=== PATIENT | female | born 1935 | race Caucasian/White ===

== ENCOUNTER → 2017-07-23 | Outpatient (CLI) | payer MEDICARE, BC | END | disposition home or self-care (01) | LOC: WOU 12:40 | PROVIDERS: ATTEND Surgery | DX: L03.011 Cellulitis of right finger (principal); B35.1 Tinea unguium | CPT/HCPCS: 73140; G0463 ==

== ENCOUNTER 2017-07-30 13:10 | Outpatient (CLI) | payer MEDICARE, BC | END 2017-07-30 23:59 | disposition home or self-care (01) | LOC: WOU 13:10 | PROVIDERS: ATTEND Surgery | DX: L03.011 Cellulitis of right finger (principal); B35.1 Tinea unguium; C91.10 Chronic lymphocytic leukemia of B-cell type not having achieved remission; M79.644 Pain in right finger(s) | CPT/HCPCS: G0463 ==

== ENCOUNTER 2019-06-17 05:16 | Inpatient (IN) | payer MEDICARE, BC ==
[2019-06-17] VITALS (15 sets, daily range): BP systolic 106–139; BP diastolic 58–90
[~2019-06-17] VITALS: Ht 154.9 cm; Wt 83.5 kg
[2019-06-17] MEDS ORDERED: oxyCODONE HCL SR 10MG TAB.SR.12H PO ONE (05:45)
[2019-06-17] MEDS ORDERED: CELECOXIB 100 MG CAPSULE ONE (05:46)
[2019-06-17] MEDS ORDERED: ACETAMINOPHEN 325 MG TABLET ONE (05:47)
[2019-06-17] MEDS ORDERED: BACITRACIN 50000 UNITS/VIAL ONE (06:17)
[2019-06-17] MEDS ORDERED: ANESTHESIA TRAY IN PYXIS 1 EA TRAY MC ONE (06:17)
[2019-06-17] MEDS ORDERED: MIDAZOLAM HCL 2 MG/2ML VIAL ONE (06:50)
[2019-06-17] MEDS ORDERED: MORPHINE SULFATE/PF 10 MG/10ML (1MG/ML) AMPUL ONE (06:50)
[2019-06-17] MEDS ORDERED: SCOPOLAMINE HBR 1 EA PATCH.TD72 TD ONE (06:50)
[2019-06-17] MEDS ORDERED: FLUMAZENIL 0.5 MG VIAL ONE (06:51)
[2019-06-17] MEDS ORDERED: TRANEXAMIC ACID 3,000 MG in SODIUM CHLORIDE IRRIG SOLUTION 70 ML IR ONE (08:00)
--- NOTE | 2019-06-17 09:00 | NUR ---
Tele/RN Patient transferred from OR for post left hip orthoplasty accompanied by OR nurse by [email or web address]. Pt AOx4, able to response all stimuli. Skin is warm to touch, kept placed on abduction pillow, no further c/o discomfort on operative site, intact surgery and IV site. Given orientation call light, medications, meal time, and TV. Call light with in reach, will continue to monitor.
[2019-06-17] MEDS ORDERED: PANTOPRAZOLE 40 MG TABLET.DR PO ONE (10:54)
[2019-06-17] MEDS ORDERED: CLONIDINE HCL 0.1 MG TABLET PO PRN (11:00)
[2019-06-17] MEDS ORDERED: oxyCODONE IR immediate release 5 MG PO PRN (11:00)
[2019-06-17] MEDS ORDERED: MENTHOL/CETYLPYRD (CEPACOL) 1 LOZ LOZENGE PO PRN (11:00)
[2019-06-17] MEDS ORDERED: DULCOLAX 10 MG/SUPP.RECT RC PRN (11:00)
[2019-06-17] MEDS ORDERED: COLACE 250 MG CAPSULE PO PRN (11:00)
[2019-06-17] MEDS ORDERED: NALOXONE HCL 0.4 MG/ML AMPUL IV PRN (11:00)
[2019-06-17] MEDS ORDERED: MAG HYDROX/AL HYDROX/SIMETH 30 ML UDC PO PRN (11:00)
[2019-06-17] MEDS ORDERED: SENOKOT 8.6 MG TABLET PO PRN (11:00)
[2019-06-17] MEDS ORDERED: HYDROCODONE/APAP 5/325MG 1 EACH TABLET PO PRN (11:00)
[2019-06-17] MEDS ORDERED: AMBIEN 5 MG TABLET PO PRN (11:00)
[2019-06-17] MEDS ORDERED: HYDROMORPHONE 1 MG/1 ML DISP.SYRIN IM/IV/SC PRN (11:00)
[2019-06-17] MEDS ORDERED: diphenhydrAMINE HCL 25 MG CAPSULE PO PRN (11:00)
[2019-06-17] MEDS ORDERED: ONDANSETRON HCL/PF 4 MG/2 ML VIAL IV PRN ×2 (11:00)
[2019-06-17] MEDS ORDERED: HYDROMORPHONE 1 MG/1 ML DISP.SYRIN IV PRN (11:00)
[2019-06-17] MEDS ORDERED: DOCUSATE SODIUM 250 MG CAPSULE PO ONE (11:17)
[2019-06-17] MEDS: SERTRALINE HCL 50 MG TABLET PO SCH (11:21)
[2019-06-17] MEDS ORDERED: OMEP40CA13 PO (11:23)
[2019-06-17] MEDS ORDERED: FLUT1BLS PO (11:23)
[2019-06-17] MEDS ORDERED: LEVO112T7 PO (11:23)
[2019-06-17] MEDS ORDERED: oxyCODONE IR immediate release 5 MG PO ONE (11:26)
[2019-06-17] MEDS: IV LR 1000 ML 1,000 ML IV PRN (12:17)
[2019-06-17] MEDS: DOCUSATE SODIUM 100 MG CAPSULE PO SCH (17:04)
[2019-06-17] MEDS: ANCEF 1 G in IV D5W 50 ML IV SCH ×2 (17:04→23:36)
--- NOTE | 2019-06-17 19:00 | NUR ---
Tele/RN Closing Note Pt. in comfortably, no c/o pain or any discomfort R/T left hip post operative. Skin is warm to touch, respiratory even unlabored. Will endorse to manager reading.
--- NOTE | 2019-06-17 19:44 | NUR ---
RECEIVE PT IN BED A/O X 4 STABLE AND NOT IN DISTRESS S/P ORIF L HIP NO C/O PAIN AT THIS TIME SR ON CARDIAC MONITORING. SAFETY MEASURES AT ALL TIMES WILL CONTINUE TO MONITOR
[2019-06-17] MEDS: FAMOTIDINE (20 MG) 20 MG TABLET PO SCH (21:32)
[2019-06-18] VITALS: BP 111/66
[2019-06-18] MEDS: IV LR 1000 ML 1,000 ML IV PRN (02:49)
[2019-06-18] MEDS: oxyCODONE IR immediate release 5 MG PO PRN ×4 (03:49→20:10)
[2019-06-18 04:00] VITALS: BP 129/73
[2019-06-18] MEDS: TYLENOL 650 MG TABLET PO PRN ×3 (05:01→20:07)
--- NOTE | 2019-06-18 06:16 | NUR ---
DIRECTOR OF TRAINING PT ASLEEP AND EASILY AWAKEN,NO S/S OF DISTRESS AT THIS TIME. NEEDS ATTENDED AND ANTICIPATED, KEPT CLEAN DRY AND COMFORTABLE. LEG HIP ABDUCTOR AT ALL TIMES. S/P LEFT HIP TOTAL ARTHROPLASTY DRESSING INTACT, CLEAN AND NO S/S OF BLEEDING NOTED. CONTINUOS O2 SAT AT BEDSIDE 02 SATURATION AT 93%. ON CARDIAC MONITORING SINUS RHYTHM 89 HR IN TELE MONITOR. MONITORED FOR PAIN NO C/O PAIN AT THIS TIME. SAFETY MEASURES AT ALL TIMES. WILL ENDORSE NEXT SHIFT POC.
--- NOTE | 2019-06-18 07:00 | NUR ---
MS/RN Opening Note Received Patient AO x 4, D/C telemetry. Complain of s/p ORIF on left hip, given oxycodone 5 mg, no noticed bleeding or complication also. Respiratory even and unlabored, Pt take off N/C oxygen, O2sat 93 % in room air. Daughter at bed side, call light within reach, will continue to monitor.
[2019-06-18 08:00] VITALS: BP 114/73
[2019-06-18] MEDS: PANTOPRAZOLE 40 MG TABLET.DR PO SCH (08:06)
[2019-06-18] MEDS: FAMOTIDINE (20 MG) 20 MG TABLET PO SCH ×2 (08:06→20:10)
[2019-06-18] MEDS: DOCUSATE SODIUM 100 MG CAPSULE PO SCH ×2 (08:06→16:46)
[2019-06-18] MEDS: SERTRALINE HCL 50 MG TABLET PO SCH (08:09)
[2019-06-18] MEDS: RIVAROXABAN 10 MG TABLET PO SCH (08:09)
[2019-06-18 08:45] LABS: HEMOGLOBIN 10.2 g/dL (11.5-14.8)
--- NOTE | 2019-06-18 09:15 | NUR ---
Patient c/o pain on left hip s/p ORIF done on yesterday, and requesting increase dosage from 5mg to 10 mg of oxycodone same as dosage patient takes at home. Called and left message to Dr. Ferrera regarding above.
--- NOTE | 2019-06-18 09:56 | NUR ---
New order received/Oxycodone 10mg x [address] Ferrera.
[2019-06-18] MEDS ORDERED: oxyCODONE IR immediate release 5 MG PO ONE (10:00)
[2019-06-18] MEDS ORDERED: SENN-168 PO (14:44)
[2019-06-18] MEDS ORDERED: RIVA10TA PO (14:44)
[2019-06-18] MEDS ORDERED: DOCU-141 PO (14:44)
[2019-06-18 16:00] VITALS: BP 138/67
--- NOTE | 2019-06-18 16:00 | NUR ---
Called TUNNEL HEADING SUPERVISOR/George Eisenberg regarding patient wants to discharge to home tomorrow instead of today due to having nauseate, dizziness after PT evaluation. TUNNEL HEADING SUPERVISOR/[place]gin stated ok to d/c tomorrow. Will continue to monitor patient condition.
--- NOTE | 2019-06-18 17:00 | NUR ---
Patient noticed fever 102.3, given Tylenol and rechecked temperature was 99.0. Informed POCKETED SPRING MACHINE OPERATOR/Eisenberg received new order cbc, bmp now, and cbc, bmp tomorrow am, UA C/S. Noted and carry out.
--- NOTE | 2019-06-18 18:50 | NUR ---
MS/RN Closing note Pt is in bed comfortably, no pain or distress observed at this time. Skin is warm to touch, latest temperature 99.8, checked bladder scanner and shows 74ml remains, respiratory even and unlabored. Call light within reach, endorse care to PM nurse.
[2019-06-18 19:07] LABS: CREATININE 0.7 mg/dL (0.6-1.3)
--- NOTE | 2019-06-18 19:30 | NUR ---
RN NOTES RECEIVED PT. AWAKE ON BED, DAUGHTER AT BEDSIDE, NOT IN DISTRESS , DRESSING ON THE LEFT HIP DRY AND INTACT, CALL LIGHT WITHIN REACH, [id number], CONTINUE TO MONITOR
[2019-06-18 20:00] VITALS: BP 131/69
--- NOTE | 2019-06-18 20:10 | NUR ---
RN NOTES COMPLAINED OF LEFT HIP PAIN- OXY IR 10MG PO GIVEN ORDERED, V/S STABLE.... PT. HAS TEMP. OF 100.6- TYLENOL 650MG PO GIVEN ORDERED.. COLD COMPRESS RENDERED..
[2019-06-18 20:39] LABS: BASOPHILS % (AUTO) 0.8 % (0.0-2.0); EOSINOPHILS % (AUTO) 0.3 % (0.0-6.0); HEMATOCRIT 30 % (33-45); HEMOGLOBIN 10.1 g/dL (11.5-14.8); LYMPHOCYTES # (AUTO) 0.4 /CMM (0.8-4.8); LYMPHOCYTES % (AUTO) 7.2 % (20.0-44.0); MEAN CORPUSCULAR HGB CONC 34 g/dl (31.0-36.0); MEAN CORPUSCULAR VOLUME 96 fL (82-100); MONOCYTES % (AUTO) 16.6 % (2.0-12.0); NEUTROPHILS # (AUTO) 4.6 /CMM (1.8-8.9); NEUTROPHILS % (AUTO) 75.1 % (43.0-81.0); PLATELET COUNT (AUTO) 150 /CMM (150-450); RED BLOOD CELL COUNT(AUTO) 3.12 MIL/uL (4.0-5.2); WHITE BLOOD COUNT (AUTO) 6.1 K/uL (4.3-11.0)
[2019-06-18 20:59] LABS: LYMPHOCYTES % (MANUAL) 10 % (16-48); NEUTROPHILS % (MANUAL) 75 (42-76)
[2019-06-18 21:00] LABS: MONOCYTES % (MANUAL) 15 % (0-11.0)
--- NOTE | 2019-06-18 21:00 | NUR ---
RN NOTES PT. TEMP. WENT DOWN TO 99F
[2019-06-18 21:17] LABS: APPEARANCE,URINE SL CLOUDY (CLEAR); BILIRUBIN,URINE NEGATIVE (NEGATIVE); BLOOD, URINE LARGE Ery/uL (NEGATIVE); COLOR,URINE YELLOW (YELLOW); KETONES,URINE NEGATIVE (NEGATIVE); LEUKOCYTE ESTERASE ,URINE LARGE (NEGATIVE); NITRITE, URINE NEGATIVE (NEGATIVE); PH,URINE 5.5 (5.0-8.0); PROTEIN,URINE TRACE mg/dl (NEGATIVE); UGLUCOSE NEGATIVE (NEGATIVE); UROBILINOGEN,URINE 0.2 EU/dL (0.2)
[2019-06-18 21:24] LABS: BACTERIA,URINE 2+ /HPF (None Seen); SQUAMOUS EPITHELIAL CELL,UR Few /HPF (None Seen)
[2019-06-18] MEDS ORDERED: LEVOTHYROXINE SODIUM 112 MCG TABLET PO SCH (22:00)
[2019-06-19] MEDS: oxyCODONE IR immediate release 5 MG PO PRN ×6 (01:03→19:55)
--- NOTE | 2019-06-19 01:03 | NUR ---
RN NOTES COMPLAINED OF LEFT HIP PAIN- OXY IR GIVEN ORDERED, V/S STABLE
[2019-06-19] MEDS: TYLENOL 650 MG TABLET PO PRN ×3 (01:06→20:10)
--- NOTE | 2019-06-19 01:15 | NUR ---
RN NOTES PT. HAS TEMP OF 100.2- TYLENOL 650MG PO GIVEN... COLD COMPRESS RENDERED
--- NOTE | 2019-06-19 02:00 | NUR ---
RN NOTES TEMP WENT DOWN TO 98.8
--- NOTE | 2019-06-19 04:26 | NUR ---
RN NOTES COMPLAINED OF LEFT HIP- OXY IR 10MG PO GIVEN ORDERED, V/S STABLE
--- NOTE | 2019-06-19 06:34 | NUR ---
RN NOTES SLEEPING BUT AROUSABLE, MORNING CARE RENDERED, NO SOB, CALL LIGHT WITHIN REACH, SIDERAILSUPX2, PT. NEEDS ATTENDED
[2019-06-19 07:28] LABS: BASOPHILS % (AUTO) 0.4 % (0.0-2.0); EOSINOPHILS % (AUTO) 1.4 % (0.0-6.0); HEMATOCRIT 30 % (33-45); HEMOGLOBIN 10.2 g/dL (11.5-14.8); LYMPHOCYTES # (AUTO) 0.4 /CMM (0.8-4.8); LYMPHOCYTES % (AUTO) 5.7 % (20.0-44.0); MEAN CORPUSCULAR HGB CONC 34 g/dl (31.0-36.0); MEAN CORPUSCULAR VOLUME 95 fL (82-100); MONOCYTES # (AUTO) 1.4 /CMM (0.1-1.30); MONOCYTES % (AUTO) 19.8 % (2.0-12.0); NEUTROPHILS % (AUTO) 72.7 % (43.0-81.0); PLATELET COUNT (AUTO) 150 /CMM (150-450); RED BLOOD CELL COUNT(AUTO) 3.16 MIL/uL (4.0-5.2); WHITE BLOOD COUNT (AUTO) 6.9 K/uL (4.3-11.0)
--- NOTE | 2019-06-19 07:30 | NUR ---
MS RN OPENING NOTES RECEIVED PT AWAKE IN BED IN NO ACUTE SIGNS OF DISTRESS. A/O X4. ABLE TO MAKE NEEDS KNOWN, DENIES PAIN OR ANY DISCOMFORTS AT THIS TIME. DRESSING ON LEFT HIP C/D/I. ON ROOM AIR, BREATHING EVEN AND UNLABORED. IV ACCESS ON RFA 20 GAUGE IV SALINE LOCK INTACT, PATENT AND FLUSHES WELL. BED LOCKED AND IN LOWEST POSITION, SIDE RAILS UP X2. CALL LIGHT WITHIN REACH, WILL CONTINUE TO MONITOR.
[2019-06-19 07:49] LABS: CALCIUM, SERUM 8.8 mg/dL (8.5-10.1); CREATININE 0.7 mg/dL (0.6-1.3)
[2019-06-19 08:00] VITALS: BP 122/68
[2019-06-19] MEDS: PANTOPRAZOLE 40 MG TABLET.DR PO SCH (08:11)
[2019-06-19] MEDS: DOCUSATE SODIUM 100 MG CAPSULE PO SCH ×2 (08:11→16:18)
[2019-06-19] MEDS: FAMOTIDINE (20 MG) 20 MG TABLET PO SCH ×2 (08:12→22:10)
[2019-06-19] MEDS: SERTRALINE HCL 50 MG TABLET PO SCH (08:13)
[2019-06-19 08:41] LABS: BAND % (MANUAL) 1 % (0.0-5.0); LYMPHOCYTES % (MANUAL) 3 % (16-48); MONOCYTES % (MANUAL) 14 % (0-11.0); MYELOCYTES % 1 % (0-0); NEUTROPHILS % (MANUAL) 81 (42-76)
--- NOTE | 2019-06-19 09:31 | NUR ---
RN NOTES PT NOTED WITH URINE WBC 10-20, BLANKING MACHINE OPERATOR ANDREWS ON UNIT MADE AWARE.
[2019-06-19] MEDS: CEFTRIAXONE 1 G in IV D5W 50 ML IV SCH (11:47)
--- NOTE | 2019-06-19 12:36 | NUR ---
RN NOTES PT COMPLAINED OF LEFT HIP PAIN 6/10 SCALE, OXY 1R 10MG PO GIVEN ORDERED. WILL CONTINUE TO MONITOR AND REASSESS.
--- NOTE | 2019-06-19 15:53 | NUR ---
RN NOTES PT NOTED WITH ELEVATED TEMP OF 100.5F, PRN TYLENOL 650 MG PO GIVEN @ 1551 AND COOLING MEASURES DONE. WILL CONTINUE TO MONITOR.
[2019-06-19 16:00] VITALS: BP 131/81
[2019-06-19] MEDS: RIVAROXABAN 10 MG TABLET PO SCH (16:19)
--- NOTE | 2019-06-19 18:24 | NUR ---
RN NOTES RE-CHECKED TEMP JUST NOW AND WAS 98.8F. WILL CONTINUE TO MONITOR.
--- NOTE | 2019-06-19 18:31 | NUR ---
MS RN CLOSING NOTES PT IN BED AWAKE AND WATCHING TV AT THIS TIME. DAUGHTER AT BEDSIDE. A/O X4. ABLE TO MAKE NEEDS KNOWN. DRESSING ON LEFT HIP C/D/I. ON ROOM AIR, TOLERATING WELL WITH NO SOB NOTED THROUGHOUT THE DAY. IV ACCESS ON RFA G #20 IV SALINE LOCK INTACT, PATENT AND FLUSHES WELL, NO S/S OF INFILTRATIONS NOTED AT SITE. ALL NEEDS AND CARE ATTENDED WELL. BED LOCKED AND IN LOWEST POSITION WITH SIDE RAILS UP X2. CALL LIGHT WITHIN REACH. WILL ENDORSE TO BOAT CARPENTER MECHANIC NURSE FOR MAYKEL.
--- NOTE | 2019-06-19 19:40 | NUR ---
MSRN FULLY AWAKE, DAUGHTER AT BEDSIDE. VERBALIZES LEFT HIP PAIN, PATIENT ON Q 3HRS NEEDED OXY IR 10 MG PO. LOW GRADE TEMP 99 DEGREES. ENCOURAGED USE OF INCENTIVE SPIROMETRY, ABLE TO REACH 2500 LEVEL. RE EDUCATE TO EXHALE SLOWLY TO PREVENT DIZZINESS. ALL NEEDS ATTENDED TO CONTINUE.
--- NOTE | 2019-06-19 19:55 | NUR ---
MSRN ADMINISTERED OXY IR 10 MG PO ORDERED. FOR LEFT HIP PAIN. BEDREST EMPHASIZED .
[2019-06-19 20:00] VITALS: BP 144/88
--- NOTE | 2019-06-19 20:10 | NUR ---
MSRN RECHECKED TEMP WAS 99.9. TYLENOL 650 MG PO GIVEN REQUESTED. ASSISTED BY DAUGHTER TO BSC, VOIDED FREELY. SAFETY PRECAUTIONS EMPHASIZED. WELL UNDERSTOOD.
--- NOTE | 2019-06-19 22:45 | NUR ---
MSRN SLEEPING, APPEARS COMFORTABLE. CONTINUED
--- NOTE | 2019-06-19 23:30 | NUR ---
MSRN SLEEPING STILL. CLOSELY WATCHED.
[2019-06-20] MEDS: oxyCODONE IR immediate release 5 MG PO PRN ×4 (00:34→12:18)
--- NOTE | 2019-06-20 06:09 | NUR ---
IRENE WAS MEDICATED WITH OXY IR 10 PO. STATED, ABLE TO SLEPT WELL LAST NIGHT, PAIN UNDER CONTROL. HOPING WILL PARTICIPATE MORE ON HER PHYSICAL THERAPY
[2019-06-20] MEDS: LEVOTHYROXINE SODIUM 112 MCG TABLET PO SCH ×2 (06:58→07:30)
--- NOTE | 2019-06-20 07:18 | NUR ---
MS RN OPENING NOTES RECEIVED PT IN BED AWAKE, A/O X4. ABLE TO MAKE NEEDS KNOWN, DENIES PAIN OR ANY DISCOMFORTS AT THIS TIME. DRESSING ON LEFT HIP C/D/I. ON ROOM AIR, BREATHING EVEN AND UNLABORED. IV SL ON RFA G# 20 INTACT, PATENT AND FLUSHES WELL. BED LOCKED AND IN LOWEST POSITION WITH SIDE RAILS UP X2. CALL LIGHT WITHIN REACH. WILL CONTINUE TO MONITOR.
--- NOTE | 2019-06-20 07:35 | NUR ---
RN NOTES SYNTHROID 112 MCG TAB SCHEDULED FOR 729 NOT GIVEN BECAUSE IT WAS GIVEN ALREADY EARLIER BY TELECOMMUNICATIONS SALES REPRESENTATIVE NURSE.
[2019-06-20 08:00] VITALS: BP 124/68
[2019-06-20] MEDS: PANTOPRAZOLE 40 MG TABLET.DR PO SCH (08:39)
[2019-06-20] MEDS: DOCUSATE SODIUM 100 MG CAPSULE PO SCH (08:39)
[2019-06-20] MEDS: FAMOTIDINE (20 MG) 20 MG TABLET PO SCH (08:39)
--- NOTE | 2019-06-20 08:43 | NUR ---
RN NOTES PT COMPLAINED OF LEFT HIP PAIN, 6/10 SCALE, OXY 1R 10MG PO GIVEN AT 0841. WILL CONTINUE TO MONITOR AND REASSESS.
[2019-06-20] MEDS: SERTRALINE HCL 50 MG TABLET PO SCH (08:53)
[2019-06-20] MEDS: CEFTRIAXONE 1 G in IV D5W 50 ML IV SCH (11:27)
--- NOTE | 2019-06-20 12:20 | NUR ---
RN NOTES PT HAD PHYSICAL THERAPY DONE AND WALKED WITH WALKER WITH SBA. PT NOW COMPLAINED OF LEFT HIP PAIN, 6/10 SCALE, OXY IR 10MG PO GIVEN AT 1218. WILL CONTINUE TO MONITOR AND REASSESS.
[2019-06-20] MEDS ORDERED: CEPH-570 PO (12:40)
--- NOTE | 2019-06-20 15:24 | NUR ---
RN DISCHARGED NOTES PT DISCHARGED HOME IN STABLE MEDICAL CONDITION. A/O X4, SAME ABLE TO MAKE NEEDS KNOWN. ALL NEEDS ATTENDED WELL. V/S TAKEN AND RECORDED. PHOTO OF LEFT HIP SURGICAL SITE TAKEN AND FILED IN CHART. ALOK INTACT WITH NO BLEEDING NOTED AT SURGICAL SITE, DRESSING CHANGED ORDERED. IV ACCESS ON LFA REMOVED WITH NO BLEEDING NOTED, DRY DRESSING APPLIED. NAME ARMBAND REMOVED. HEALTH TEACHING/DISCHARGED INSTRUCTIONS GIVEN TO PT AND DAUGHTER, BOTH VERBALIZED UNDERSTANDING. PT LEFT UNIT VIA WHEELCHAIR @ 1440 ACCOMPANIED BY LOOM STARTER TO LOBBY WITH PT'S DAUGHTER. CHARGE NURSE AWARE OF DISCHARGE.
== END 2019-06-20 14:40 | disposition home health service (06) | DRG 470 ==
LOC: DS 05:16 → MED 10:04 → TELE 10:09 → MED 06-18 08:38
PROVIDERS: ADMIT Nurse Practitioner Acute Care; ATTEND Nurse Practitioner Acute Care
PROC: 0SRB0JZ Replacement of Left Hip Joint with Synthetic Substitute, Open Approach (ICD-10-PCS; principal; 2019-06-17)
DX: M16.12 Unilateral primary osteoarthritis, left hip (principal); C91.11 Chronic lymphocytic leukemia of B-cell type in remission; N39.0 Urinary tract infection, site not specified; E03.9 Hypothyroidism, unspecified; K21.9 Gastro-esophageal reflux disease without esophagitis; Z90.710 Acquired absence of both cervix and uterus; Z90.49 Acquired absence of other specified parts of digestive tract; Z98.890 Other specified postprocedural states; Z80.9 Family history of malignant neoplasm, unspecified; Z79.899 Other long term (current) drug therapy; F32.9 Major depressive disorder, single episode, unspecified
CPT/HCPCS: 36415; 80048-TC; 81000-TC; 85025-TC; 85027-TC; 86850-TC; 86921-TC; 87081-TC; 87086-TC; 87186-TC; 88305-TC; 88311-TC; 97110-TC; 97116-TC; 97530-TC; A4217; A6209; A6402; A6403; C1776; G0378; J0690; J0696; J1100; J2250; J2274; J2704; J3490; J7050; J7060; J7120

== ENCOUNTER 2022-10-30 18:22 | Inpatient (IN) | payer MEDICARE, BC ==
[~2022-10-30] VITALS: Ht 154.9 cm; Wt 70.3 kg
[~2022-10-30 18:22] MED LIST: CEPH-570 PO; DOCU-141 PO; FLUT1BLS PO; LEVO112T7 PO; OMEP40CA21 PO; RIVA10TA PO; SENN-261 PO
[2022-10-30] MEDS ORDERED: ACETAMINOPHEN ES 500 MG TABLET PO ONE (19:00)
[2022-10-30] MEDS ORDERED: IV NS 0.9% 1,000 ML BAG IV ONE (19:00)
[2022-10-30] MEDS ORDERED: VANCOMYCIN 1 GM in IV D5W 250 ML IV ONE (19:00)
[2022-10-30] MEDS ORDERED: CEFEPIME 1 GM in IV D5W 50 ML IV ONE (19:00)
[2022-10-30] MEDS ORDERED: FLUT1BLS13 INH (19:04)
[2022-10-30] MEDS ORDERED: SERT100T12 PO (19:04)
[2022-10-30] MEDS ORDERED: CLON0.5T4 PO (19:04)
[2022-10-30] MEDS ORDERED: ACAL100C PO (19:04)
[2022-10-30] MEDS ORDERED: ROSU5TAB13 PO (19:04)
[2022-10-30] MEDS ORDERED: IGG IV (19:08)
[2022-10-30] MEDS ORDERED: VANCOMYCIN 1 GM /D5W 250 ML PB IV ONE (19:19)
[2022-10-30] MEDS ORDERED: ACETAMINOPHEN ES 500 MG TABLET ONE (19:19)
[2022-10-30 19:43] LABS: BASOPHILS % (AUTO) 0.2 % (0.0-2.0); EOSINOPHILS % (AUTO) 0.5 % (0.0-6.0); HEMATOCRIT 31 % (33-45); HEMOGLOBIN 9.9 g/dL (11.5-14.8); LYMPHOCYTES # (AUTO) 5.2 K/uL (0.8-4.8); LYMPHOCYTES % (AUTO) 40.8 % (20.0-44.0); MEAN CORPUSCULAR HGB CONC 32 g/dl (31.0-36.0); MEAN CORPUSCULAR VOLUME 91 fL (82-100); MONOCYTES # (AUTO) 1.6 K/uL (0.1-1.30); MONOCYTES % (AUTO) 12.6 % (2.0-12.0); NEUTROPHILS # (AUTO) 5.9 K/uL (1.8-8.9); NEUTROPHILS % (AUTO) 45.9 % (43.0-81.0); PLATELET COUNT (AUTO) 107 K/uL (150-450); RED BLOOD CELL COUNT(AUTO) 3.37 MIL/uL (4.0-5.2); WHITE BLOOD COUNT (AUTO) 12.9 K/uL (4.3-11.0)
--- NOTE | 2022-10-30 20:05 | NUR ---
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 RECENT SINUS Sx. C/O: FEVER AND SEVER CHILLS. PT CONNECTED TO BEDSIDE MONITOR AND PROVIDED Rx FROM DOCTOR TO TREAT ABX STARTED BLOOD AND CULTRUES DRAWN. NO TACHYCARDIA NOTED, BP WNL. FEVER NOTED 102. IN BED GRANDAUGHTER AT BEDSIDE. BED LOCKED IN LOWEST POSITION.
--- NOTE | 2022-10-30 20:09 | NUR ---
URINE COLLECTED AND SENT TO LAB.
[2022-10-30 20:16] LABS: CARBON DIOXIDE 24 mmol/L (21-32); CHLORIDE 107 mmol/L (98-107); CREATININE 0.9 mg/dL (0.6-1.3); GLUCOSE 125 mg/dL (74-106); POTASSIUM 4.3 mmol/L (3.5-5.1); SODIUM SERUM 139 mmol/L (136-145); UREA NITROGEN, BLOOD 18 mg/dL (7-18)
[2022-10-30] MEDS ORDERED: IOHEXOL-300 100 ML VIAL IV ONE (20:39)
[2022-10-30] MEDS ORDERED: IV NS 0.9% 250 ML IV ONE (20:39)
[2022-10-30] MEDS ORDERED: CT SWABBABLE VALVE TRANS SET 1 EA INFUS.SET MC ONE (20:39)
[2022-10-30 20:41] LABS: ALANINE AMINOTRANSFERASE 28 U/L (12-78); ALKALINE PHOSPHATASE 95 U/L (46-116); ASPARTATE AMINOTRANSFERASE 24 U/L (15-37); BILIRUBIN,DIRECT 0.1 mg/dL (0.0-0.2); BILIRUBIN,TOTAL 0.3 mg/dL (0.2-1.0); TOTAL PROTEIN, SERUM 6.8 g/dL (6.4-8.2)
--- NOTE | 2022-10-30 20:42 | NUR ---
PT TAKEN FOR CT.
[2022-10-30 20:49] LABS: BILIRUBIN,URINE NEGATIVE (NEGATIVE); COLOR,URINE YELLOW (YELLOW); LEUKOCYTE ESTERASE ,URINE NEGATIVE (NEGATIVE); NITRITE, URINE NEGATIVE (NEGATIVE); PROTEIN,URINE NEGATIVE (NEGATIVE); UGLUCOSE NEGATIVE (NEGATIVE); UROBILINOGEN,URINE 0.2 EU/dL (0.2)
[2022-10-30 20:57] LABS: BACTERIA,URINE None seen /HPF (None Seen); RBC,URINE 21-50 /HPF (0-2); WBC,URINE 0-2 /HPF (0-3)
[2022-10-30] MEDS ORDERED: IV NS 0.9% 1,000 ML IV SCH (21:30)
[2022-10-30] MEDS ORDERED: MORPHINE SULFATE INJ 2 MG/ML DISP.SYRIN IV PRN (21:30)
[2022-10-30] MEDS ORDERED: ENOXAPARIN SODIUM 40 MG/0.4 ML DISP.SYRIN SQ SCH (21:30)
[2022-10-30] MEDS ORDERED: ONDANSETRON HCL/PF 4 MG/2 ML VIAL IVP PRN (21:30)
[2022-10-30] MEDS ORDERED: IBUPROFEN 400 MG TABLET PO ONE (21:30)
--- NOTE | 2022-10-30 22:02 | NUR ---
report given to anna figueroa for inpatient services.
[2022-10-30 22:25] VITALS: BP 107/58
[2022-10-30] MEDS: ACETAMINOPHEN 325 MG TABLET PO PRN (22:51)
--- NOTE | 2022-10-30 22:52 | NUR ---
RN NOTES PATIENT C/O 11/22 HEADACHE, ACETAMINOPHEN 650MG GIVEN
--- NOTE | 2022-10-30 23:00 | NUR ---
RN NOTES PER PATIENT, HER ONCOLOGY ADVISED HER NOT TO TAKE IBUPROFEN
[2022-10-30] MEDS: clonazePAM 0.5 MG TABLET PO PRN (23:32)
[2022-10-31] VITALS: BP 96/38
[2022-10-31 04:00] VITALS: BP 122/54
[2022-10-31 06:52] LABS: BASOPHILS % (AUTO) 0.2 % (0.0-2.0); EOSINOPHILS % (AUTO) 0.3 % (0.0-6.0); HEMATOCRIT 28 % (33-45); HEMOGLOBIN 9.1 g/dL (11.5-14.8); LYMPHOCYTES % (AUTO) 34.9 % (20.0-44.0); MEAN CORPUSCULAR HGB CONC 33 g/dl (31.0-36.0); MEAN CORPUSCULAR VOLUME 91 fL (82-100); MONOCYTES # (AUTO) 1.8 K/uL (0.1-1.30); MONOCYTES % (AUTO) 15.8 % (2.0-12.0); NEUTROPHILS # (AUTO) 5.5 K/uL (1.8-8.9); NEUTROPHILS % (AUTO) 48.8 % (43.0-81.0); PLATELET COUNT (AUTO) 95 K/uL (150-450); RED BLOOD CELL COUNT(AUTO) 3.05 MIL/uL (4.0-5.2); WHITE BLOOD COUNT (AUTO) 11.4 K/uL (4.3-11.0)
[2022-10-31] MEDS ORDERED: CEFEPIME 1 GM in IV D5W 50 ML IV ONE (07:00)
--- NOTE | 2022-10-31 07:09 | NUR ---
rn opening note pt alert and oriented x4. on tele monitor currently at sinus tachycardia. pt has rac 20 guage.iv intact, patent and flushing well. pt ambulatory.all safety measures in place. bed locked at lowest position. side rails up x2. bed alarm on.
[2022-10-31 07:12] LABS: ALBUMIN 3.3 g/dL (3.4-5.0); BILIRUBIN,TOTAL 0.5 mg/dL (0.2-1.0); CALCIUM, SERUM 8.7 mg/dL (8.5-10.1); CREATININE 0.9 mg/dL (0.6-1.3); MAGNESIUM 2.4 mg/dL (1.8-2.4); POTASSIUM 4.2 mmol/L (3.5-5.1); TOTAL PROTEIN, SERUM 5.9 g/dL (6.4-8.2)
[2022-10-31] MEDS ORDERED: Medication Not On Formulary EA (Omeprazole 40 MG) PO SCH (07:30)
[2022-10-31] MEDS: LEVOTHYROXINE SODIUM 112 MCG TABLET PO SCH (07:32)
[2022-10-31] MEDS: PANTOPRAZOLE 40 MG TABLET.DR PO SCH (07:32)
[2022-10-31] MEDS: ACETAMINOPHEN 325 MG TABLET PO PRN (07:53)
[2022-10-31 08:00] VITALS: BP 110/57
[2022-10-31] MEDS: SERTRALINE HCL 50 MG TABLET PO SCH (08:02)
[2022-10-31] MEDS ORDERED: FLUTICASONE/SALMETEROL 1 DISK IH SCH (09:00)
[2022-10-31] MEDS ORDERED: ACALABRUTINIB 100 MG PO SCH (09:00)
--- NOTE | 2022-10-31 09:54 | NUR ---
RN NOTE NOTIFIED DATA PROCESSING MANAGER YUKO DOWD THAT PT IS ALLERGIC TO PENICILLIN BUT WAS GIVEN MAXIPIME WITH NO ADVERSE REACTIONS. DATA PROCESSING MANAGER SAID TO CONTINUE MAXIPIME
[2022-10-31] MEDS: IV NS 0.9% 1,000 ML IV PRN (09:58)
--- NOTE | 2022-10-31 11:59 | NUR ---
RN NOTE NOTIFIED SENIOR SQL SERVER DATABASE DEVELOPER YUKO DOWD THAT PATIENT IS ON [place]QUENCE MEDICATION AND HAS IT AT BEDSIDE AND REFUSES TO SURRENDER IT TO PHARMACY. SENIOR SQL SERVER DATABASE DEVELOPER AWARE
[2022-10-31 12:00] VITALS: BP 101/54
[2022-10-31] MEDS: ALBUTEROL FS 2.5 MG/0.5 ML VIAL.NEB NEB SCH ×2 (13:30→19:30)
[2022-10-31] MEDS: TRAMADOL HCL 50 MG TABLET PO PRN ×3 (14:35→22:01)
[2022-10-31 16:00] VITALS: BP 122/45
[2022-10-31] MEDS: FLUTICASONE PROPIONATE 16 GM BOTTLE NS SCH (16:18)
[2022-10-31] MEDS: ATORVASTATIN 10 MG TABLET PO SCH (17:00)
[2022-10-31] MEDS: VANCOMYCIN 1 GM in IV D5W 250 ML IV SCH (17:00)
[2022-10-31] MEDS: CEFEPIME 2 GM in IV D5W 100 ML IV SCH (18:05)
[2022-10-31 19:07] LABS: EOSINOPHILS % (MANUAL) 1 % (0-4); LYMPHOCYTES % (MANUAL) 33 % (16-48); MONOCYTES % (MANUAL) 8 % (0-11.0); NEUTROPHILS % (MANUAL) 58 (42-76)
--- NOTE | 2022-10-31 19:20 | NUR ---
KETTLEMAN CLOSING NOTE pt alert and oriented x4. on tele monitor currently at sinus RHYTHM. NO SIGNS OF PAIN OR DISCOMFORT NOTED AT THIS TIME/.pt has Lac 20 gauge.iv intact, patent and flushing well. pt ambulatory.all safety measures in place. bed locked at lowest position. side rails up x2. bed alarm on. ENDORSED TO MASONRY INSPECTOR RN FOR CONTUITY OF CARE Addendum: 10/31/22 at 1920 by SARAH CARABALLO RN REMAINED AFEBRILE THROUGHOUT SHIFT
[2022-10-31] MEDS: BUDESONIDE RESPULE INH 0.5 MG/2 ML AMPUL.NEB IH SCH (19:30)
[2022-10-31 20:00] VITALS: BP 122/59
[2022-10-31] MEDS: ENOXAPARIN SODIUM 30 MG/0.3 ML DISP.SYRIN SQ SCH (20:58)
[2022-10-31] MEDS: clonazePAM 0.5 MG TABLET PO PRN (23:53)
[2022-11-01] VITALS: BP 128/62
[2022-11-01] MEDS: ALBUTEROL FS 2.5 MG/0.5 ML VIAL.NEB NEB SCH ×4 (01:13→19:15)
[2022-11-01 04:00] VITALS: BP 119/58
--- NOTE | 2022-11-01 06:04 | NUR ---
CLOSING NOTES: ALERT AND ORIENTATED X4 SEEN BY THE INFECTION DISEASE MD LAST NIGHT SHE STATED SHE HAS POST NASAL DRIP SHE STATED HER NOSE IS SO STUFFY AND HARD TO EAT D/T THIS ON ROOM AIR SATS 97% PLEASENT LADY COOPERATIVE AFEBRILE THIS 12 HOURS
[2022-11-01 06:13] LABS: BASOPHILS % (AUTO) 0.2 % (0.0-2.0); EOSINOPHILS % (AUTO) 0.8 % (0.0-6.0); HEMATOCRIT 27 % (33-45); HEMOGLOBIN 8.8 g/dL (11.5-14.8); LYMPHOCYTES # (AUTO) 5.6 K/uL (0.8-4.8); LYMPHOCYTES % (AUTO) 52.4 % (20.0-44.0); MEAN CORPUSCULAR HGB CONC 32 g/dl (31.0-36.0); MEAN CORPUSCULAR VOLUME 92 fL (82-100); MONOCYTES # (AUTO) 1.3 K/uL (0.1-1.30); MONOCYTES % (AUTO) 11.8 % (2.0-12.0); NEUTROPHILS # (AUTO) 3.7 K/uL (1.8-8.9); NEUTROPHILS % (AUTO) 34.8 % (43.0-81.0); PLATELET COUNT (AUTO) 92 K/uL (150-450); RED BLOOD CELL COUNT(AUTO) 2.98 MIL/uL (4.0-5.2); WHITE BLOOD COUNT (AUTO) 10.6 K/uL (4.3-11.0)
[2022-11-01 06:42] LABS: THYROID STIMULATING HORMONE 0.14 uIU/mL (0.358-3.74); URIC ACID 3.2 mg/dL (2.6-7.2)
[2022-11-01 07:00] LABS: D-DIMER 0.24 mg/L(FEU (0.17-0.50)
--- NOTE | 2022-11-01 07:10 | NUR ---
RN NOTES RECEIVED PT ON BED, A/Ox4, ON RA, NO DISTESS NOTED, ON TELE SR, NPO FOR U/S OF ABD THIS AM ,IVF AT 75CC/HR RUNNING , SR UP X3, CALL LIGHT WITHIN EASY REACH, BED LOCKED AND IN LOWEST POSITION, CONTINUE TO MONITOR
[2022-11-01 07:11] LABS: CALCIUM, SERUM 8.6 mg/dL (8.5-10.1); CARBON DIOXIDE 23 mmol/L (21-32); CHLORIDE 106 mmol/L (98-107); CREATININE 0.7 mg/dL (0.6-1.3); GLUCOSE 97 mg/dL (74-106); POTASSIUM 3.8 mmol/L (3.5-5.1); SODIUM SERUM 138 mmol/L (136-145); UREA NITROGEN, BLOOD 9 mg/dL (7-18)
[2022-11-01] MEDS: BUDESONIDE RESPULE INH 0.5 MG/2 ML AMPUL.NEB IH SCH ×2 (07:30→19:15)
[2022-11-01 08:00] VITALS: BP 118/71
[2022-11-01] MEDS: PANTOPRAZOLE 40 MG TABLET.DR PO SCH (08:37)
[2022-11-01] MEDS: LEVOTHYROXINE SODIUM 112 MCG TABLET PO SCH (08:37)
[2022-11-01] MEDS: SERTRALINE HCL 50 MG TABLET PO SCH (08:37)
[2022-11-01] MEDS: FLUTICASONE PROPIONATE 16 GM BOTTLE NS SCH ×2 (08:39→17:05)
[2022-11-01 12:00] VITALS: BP 108/67
[2022-11-01] MEDS: IV NS 0.9% 1,000 ML IV PRN ×2 (12:37)
[2022-11-01 13:33] LABS: BAND % (MANUAL) 1 % (0.0-5.0); LYMPHOCYTES % (MANUAL) 47 % (16-48); METAMYELOCYTES % 1 % (0-0); MONOCYTES % (MANUAL) 9 % (0-11.0); NEUTROPHILS % (MANUAL) 42 (42-76)
[2022-11-01 16:00] VITALS: BP 111/61
[2022-11-01] MEDS: VANCOMYCIN 1 GM in IV D5W 250 ML IV SCH (17:00)
[2022-11-01] MEDS: ATORVASTATIN 10 MG TABLET PO SCH ×2 (17:05→17:10)
[2022-11-01] MEDS: MAGNESIUM HYDROXIDE 30 ML UDC PO PRN (17:05)
[2022-11-01] MEDS: CEFEPIME 2 GM in IV D5W 100 ML IV SCH (18:05)
--- NOTE | 2022-11-01 18:27 | NUR ---
RN NOTES NO SIGNFICANT CHANGES NOTED ON THIS SHIFT, PT DENIES ANY DISTESS , WILL ENDORSE TO STILL RUNNER NURSE FOR CONTINUITY OF CARE .
--- NOTE | 2022-11-01 19:50 | NUR ---
LOZENGE MAKER HELPER OPENING NOTE PATIENT AWAKE IN BED, ALERT/ORIENTED X 4, PT ABLE TO MAKE NEEDS KNOWN. PATIENT STABLE ON RA, NO S/S OF DISTRESS OR SOB NOTED, BREATHING EVEN AND UNLABORED. PATIENT DENIES PAIN AT THIS TIME. PATIENT ON EXTERNAL LOAD BUILDER READING SINUS RHYTHM, HR: 81. IV ACCESS ON LFA #20G INTACT AND INFUSING NS @ 75 ML/HR. SAFETY MEASURES IN PLACE: CALL LIGHT WITHIN REACH, SIDE RAILS UP X 2, BED LOCKED IN LOWEST POSITION. WILL CONTINUE TO MONITOR PATIENT
[2022-11-01 20:00] VITALS: BP 135/61
[2022-11-01] MEDS: ENOXAPARIN SODIUM 30 MG/0.3 ML DISP.SYRIN SQ SCH (21:03)
[2022-11-01] MEDS: clonazePAM 0.5 MG TABLET PO PRN (23:21)
--- NOTE | 2022-11-01 23:30 | NUR ---
PLANT MACHINIST NOTE PATIENT REQUESTING KLONOPIN FOR SLEEP. PRN KLONOPIN 0.5 MG PO GIVEN ORDERED
[2022-11-02] VITALS: BP 122/72
[2022-11-02] MEDS: ALBUTEROL FS 2.5 MG/0.5 ML VIAL.NEB NEB SCH ×4 (00:34→19:30)
[2022-11-02] MEDS: IV NS 0.9% 1,000 ML IV PRN ×2 (03:04→16:04)
[2022-11-02 04:00] VITALS: BP 130/75
[2022-11-02 07:06] LABS: HAPTOGLOBIN 218 mg/dL (41-333); IMMUNOGLOBULIN A, SERUM 10 mg/dL (64-422); IMMUNOGLOBULIN G, SERUM 402 mg/dL (586-1602); IMMUNOGLOBULIN M, SERUM 27 mg/dL (26-217)
[2022-11-02 07:13] LABS: BASOPHILS % (AUTO) 0.2 % (0.0-2.0); EOSINOPHILS % (AUTO) 1.2 % (0.0-6.0); HEMATOCRIT 30 % (33-45); LYMPHOCYTES # (AUTO) 6.6 K/uL (0.8-4.8); LYMPHOCYTES % (AUTO) 64.7 % (20.0-44.0); MEAN CORPUSCULAR HGB CONC 33 g/dl (31.0-36.0); MEAN CORPUSCULAR VOLUME 91 fL (82-100); NEUTROPHILS # (AUTO) 2.4 K/uL (1.8-8.9); NEUTROPHILS % (AUTO) 23.9 % (43.0-81.0); PLATELET COUNT (AUTO) 121 K/uL (150-450); RED BLOOD CELL COUNT(AUTO) 3.36 MIL/uL (4.0-5.2); WHITE BLOOD COUNT (AUTO) 10.1 K/uL (4.3-11.0)
--- NOTE | 2022-11-02 07:18 | NUR ---
MOLDER FITTING CLOSING NOTE PATIENT AWAKE IN BED, ALERT/ORIENTED X 4, PT ABLE TO MAKE NEEDS KNOWN. PATIENT STABLE ON RA, NO S/S OF DISTRESS OR SOB NOTED, BREATHING EVEN AND UNLABORED. PATIENT ON EXTERNAL FIRE ALARM TECHNICIAN READING SINUS RHYTHM, HR: 71. IV ACCESS ON LFA #20G INTACT AND INFUSING NS @ 75 ML/HR. MEDICATIONS GIVEN ORDERED, PT NEEDS MET THROUGHOUT SHIFT, PT SLEPT WELL. SAFETY MEASURES IN PLACE: CALL LIGHT WITHIN REACH, SIDE RAILS UP X 2, BED LOCKED IN LOWEST POSITION. ENDORSED TO DAYSHIFT RN FOR CONTINUITY OF CARE
--- NOTE | 2022-11-02 07:20 | NUR ---
RFID SPECIALIST OPENING NOTES Received pt asleep in bed AOX4. No complaints of pain or discomfort at this time. Pt is currently on RA and tolerating it well. IV access on LFA 20G running NS @ 70cc/hr. HOB elevated to pts comfort. Siderails up at all times x3. Call light within reach. Will continue to monitor.
[2022-11-02 07:23] LABS: CALCIUM, SERUM 9.5 mg/dL (8.5-10.1); CREATININE 0.7 mg/dL (0.6-1.3); POTASSIUM 3.9 mmol/L (3.5-5.1)
[2022-11-02] MEDS: BUDESONIDE RESPULE INH 0.5 MG/2 ML AMPUL.NEB IH SCH ×2 (07:30→19:30)
[2022-11-02 08:00] VITALS: BP 131/69
[2022-11-02] MEDS: LEVOTHYROXINE SODIUM 112 MCG TABLET PO SCH (08:07)
[2022-11-02] MEDS: SERTRALINE HCL 50 MG TABLET PO SCH (08:07)
[2022-11-02] MEDS: PANTOPRAZOLE 40 MG TABLET.DR PO SCH (08:07)
[2022-11-02] MEDS: FLUTICASONE PROPIONATE 16 GM BOTTLE NS SCH ×2 (08:14→16:20)
[2022-11-02] MEDS ORDERED: MAG HYDROX/AL HYDROX/SIMETH 30 ML UDC PO PRN (09:00)
[2022-11-02] MEDS: MAGNESIUM HYDROXIDE 30 ML UDC PO PRN ×2 (09:30→21:38)
[2022-11-02 12:00] VITALS: BP 121/74
[2022-11-02] MEDS: SOD FERRIC GLUC 125 MG in IV NS 0.9% 100 ML IV SCH (13:36)
[2022-11-02 16:00] VITALS: BP 109/72
[2022-11-02] MEDS: ATORVASTATIN 10 MG TABLET PO SCH ×2 (17:15→17:18)
--- NOTE | 2022-11-02 17:19 | NUR ---
TUBE INSPECTOR NOTES Pt refused lipitor 20mg. Offered 3x but pt refused. Explained risks and benefits.
[2022-11-02] MEDS: VANCOMYCIN 1 GM in IV D5W 250 ML IV SCH (17:40)
[2022-11-02 18:06] LABS: OCCULT BLOOD STOOL NEGATIVE (NEGATIVE)
--- NOTE | 2022-11-02 18:44 | NUR ---
HVAC SHEET METAL INSTALLER CLOSING NOTES All due meds and tx given as ordered. Pt tolerated everything well. All needs attended to. Pt is still currently on RA and tolerating it well. IV access on LFA 20G patent and intact running IVF NS @ 70cc/hr. Call light within reach. Will endorse to oncoming nurse.
[2022-11-02] MEDS: CEFEPIME 2 GM in IV D5W 100 ML IV SCH (18:48)
[2022-11-02 20:00] VITALS: BP 128/70
--- NOTE | 2022-11-02 20:20 | NUR ---
RT NOTE PT REFUSED TX AT THIS TIME. NO SOB NOTED. RN NOTIFIED.
--- NOTE | 2022-11-02 20:42 | NUR ---
FIREFIGHTER MARINE OPENING NOTES RECEIVED PATIENT IN BED, A/O X 4 CONSCIOUS AND COHERENT. ABLE TO VERBALIZED NEEDS. ON MODERATE HIGH BACK REST POSITION. ON ROOM AIR SATURATING WELL. CONTINENT BRP AND AMBULATE. WITH RIGHT CHEST KATHLEEN CATHETER FOR CHEMO THERAPY WITH IV ACCESS AT LFA #20G WITH NS1L AT 75ML/HR INFUSING WELL NO SWELLING OR INFILTRATION NOTED AT THIS TIME. NO PAIN OR DISCOMFORT NOTED, NO CHEST PAIN OR DISTRESS NOTED. KEPT BED ON LOWER LOCKED POSITION, KEPT SIDE RAILS UP X 2 ALL THE TIME, KEPT CALL LIGHT WITHIN AT REASH. WILL CONTINUE TO MONITOR.
[2022-11-02] MEDS: ENOXAPARIN SODIUM 30 MG/0.3 ML DISP.SYRIN SQ SCH (21:38)
[2022-11-02] MEDS: clonazePAM 0.5 MG TABLET PO PRN (23:30)
[2022-11-03] VITALS: BP 125/66
[2022-11-03] MEDS: ALBUTEROL FS 2.5 MG/0.5 ML VIAL.NEB NEB SCH ×4 (00:50→19:30)
[2022-11-03] MEDS: IV NS 0.9% 1,000 ML IV PRN ×2 (03:40→20:08)
[2022-11-03 04:00] VITALS: BP 130/70
--- NOTE | 2022-11-03 06:46 | NUR ---
HOOKER INSPECTOR CLOSING NOTES PATIENT IS IN BED, A/O X 4 ABLE TO VERBALIZED CONCERNS, ON MODERATE HIGH BACK REST POSITION, ON ROOM AIR SATURATING WELL. BREATH EVENLY, WITH IV ACCESS AT LFA #20G WITH NS AT 75ML/HR INFUSING WELL NO SWELLING OR INFILTRATION NOTED AT THIS TIME. NO PAIN OR DISTRESS NOTED, ATTACHED TO TELE MONITORING DEVICE, ALL DUE MEDICATIONS GIVEN , ALL NEEDS ATTENDED. PM CARE RENDERED PATIENT IS ABLE TO AMBULATE WITH BRP. KEPT BED ON LOWER LOCKED POSITION, KEPT SIDE RAILS UP X 2 ALL THE TIME, KEPT CALL LIGHT WITHIN AT REACH. WILL ENDORSED TO NEXT SHIFT FOR MAYKEL.
--- NOTE | 2022-11-03 07:05 | NUR ---
RN NOTES RECEIVED PT ON BED, A/Ox4, ON RA, NO DISTESS NOTED, ON TELE SR, ,IVF AT 75CC/HR RUNNING , SR UP X3, CALL LIGHT WITHIN EASY REACH, BED LOCKED AND IN LOWEST POSITION, CONTINUE TO MONITOR
[2022-11-03 07:13] LABS: BASOPHILS % (AUTO) 0.2 % (0.0-2.0); HEMATOCRIT 28 % (33-45); LYMPHOCYTES # (AUTO) 3.3 K/uL (0.8-4.8); LYMPHOCYTES % (AUTO) 56.1 % (20.0-44.0); MEAN CORPUSCULAR HGB CONC 33 g/dl (31.0-36.0); MEAN CORPUSCULAR VOLUME 91 fL (82-100); MONOCYTES # (AUTO) 0.7 K/uL (0.1-1.30); MONOCYTES % (AUTO) 12.2 % (2.0-12.0); NEUTROPHILS # (AUTO) 1.7 K/uL (1.8-8.9); NEUTROPHILS % (AUTO) 29.5 % (43.0-81.0); PLATELET COUNT (AUTO) 118 K/uL (150-450); RED BLOOD CELL COUNT(AUTO) 3.05 MIL/uL (4.0-5.2); WHITE BLOOD COUNT (AUTO) 5.8 K/uL (4.3-11.0)
[2022-11-03] MEDS: BUDESONIDE RESPULE INH 0.5 MG/2 ML AMPUL.NEB IH SCH ×2 (07:30→19:30)
[2022-11-03 07:38] LABS: CALCIUM, SERUM 9.1 mg/dL (8.5-10.1); CARBON DIOXIDE 24 mmol/L (21-32); CHLORIDE 108 mmol/L (98-107); CREATININE 0.5 mg/dL (0.6-1.3); GLUCOSE 92 mg/dL (74-106); POTASSIUM 3.7 mmol/L (3.5-5.1); SODIUM SERUM 141 mmol/L (136-145); UREA NITROGEN, BLOOD 10 mg/dL (7-18)
[2022-11-03 08:00] VITALS: BP 116/62
[2022-11-03] MEDS: PANTOPRAZOLE 40 MG TABLET.DR PO SCH (08:12)
[2022-11-03] MEDS: SERTRALINE HCL 50 MG TABLET PO SCH (08:12)
[2022-11-03] MEDS: LEVOTHYROXINE SODIUM 112 MCG TABLET PO SCH (08:12)
[2022-11-03] MEDS: FLUTICASONE PROPIONATE 16 GM BOTTLE NS SCH ×2 (08:13→17:10)
--- NOTE | 2022-11-03 08:18 | NUR ---
PATIENT REFUSED TX. PATIENT SAID SHE DOES NOT NEED TX. RN NOTIFIED. Addendum: 11/03/22 at 0819 by ELICEO SEGURA RT Amended: Links added.
[2022-11-03 08:36] LABS: EOSINOPHILS % (MANUAL) 2 % (0-4); LYMPHOCYTES % (MANUAL) 62 % (16-48); MONOCYTES % (MANUAL) 4 % (0-11.0); NEUTROPHILS % (MANUAL) 32 (42-76)
[2022-11-03] MEDS: VANCOMYCIN 1 GM in IV D5W 250 ML IV SCH ×2 (08:47→20:17)
[2022-11-03 10:07] LABS: *ANA ANTI-CENTROMERE B AB <0.2 AI (0.0-0.9); *ANA ANTI-DNA(DS) AB, QN <1 IU/mL (0-9); *ANA ANTI-JO-1 <0.2 AI (0.0-0.9); *ANA ANTICHROMATIN ANTIBODY <0.2 AI (0.0-0.9); *ANA RNP ANTIBODIES <0.2 AI (0.0-0.9); *ANA SJOGREN'S ANTI-SS-A <0.2 AI (0.0-0.9); *ANA SJOGREN'S ANTI-SS-B <0.2 AI (0.0-0.9); *ANAANTI-SCLERODERMA-70 AB <0.2 AI (0.0-0.9); *ANASMITH AB <0.2 AI (0.0-0.9)
[2022-11-03 12:00] VITALS: BP 131/72
[2022-11-03] MEDS: SOD FERRIC GLUC 125 MG in IV NS 0.9% 100 ML IV SCH (14:28)
[2022-11-03 16:00] VITALS: BP 124/63
[2022-11-03] MEDS: ATORVASTATIN 10 MG TABLET PO SCH (17:10)
[2022-11-03] MEDS: CEFEPIME 2 GM in IV D5W 100 ML IV SCH (18:04)
--- NOTE | 2022-11-03 18:45 | NUR ---
RN NOTES NO SIGNFICANT CHANGES NOTED ON THIS SHIFT, PT DENIES ANY DISTESS , WILL ENDORSE TO BIOMATERIALS ENGINEER NURSE FOR CONTINUITY OF CARE .
--- NOTE | 2022-11-03 19:30 | NUR ---
TIRE TRIMMER HAND OPENING NOTES RECEIVED PATIENT IN BED AWAKE. PATIENT IS A/O X 4 . ON ROOM AIR SATURATING WELL. BREATHING EVEN AND UNLABORED . IV ACCESS AT LFA #20G WITH NS AT 75ML/HR INFUSING WELL. NO INFILTRATION NOTED AT THIS TIME. NO PAIN OR DISTRESS NOTED, TELE MONITOR READING SR. ALL NEEDS ATTENDED. ALL SAFETY MEASURES IN PLACE. BED ON LOWER LOCKED POSITION, SIDE RAILS UP X 2 ALL THE TIME, CALL LIGHT AND TABLE WITHIN REACH. WILL CONTINUE TO MONITOR CLOSELY.
[2022-11-03 20:00] VITALS: BP 125/55
[2022-11-03] MEDS: ENOXAPARIN SODIUM 30 MG/0.3 ML DISP.SYRIN SQ SCH (21:00)
--- NOTE | 2022-11-03 21:23 | NUR ---
RN NOTES PATIENT REFUSED LOVENOX FOR 2100. OFFERED AND EXPLAINED THE USE AND BENEFITS. STILL REFUSING. RESPECTED PATIENT RIGHTS.
[2022-11-03] MEDS: clonazePAM 0.5 MG TABLET PO PRN (23:55)
--- NOTE | 2022-11-03 23:55 | NUR ---
RN NOTES PRN CLONOPIN 0.5 MG GIVEN PER PATIENT REQUEST AT 1235.
[2022-11-04 00:06] VITALS: BP 134/59
[2022-11-04] MEDS: ALBUTEROL FS 2.5 MG/0.5 ML VIAL.NEB NEB SCH ×3 (01:30→13:28)
[2022-11-04 04:39] VITALS: BP 134/59
[2022-11-04 05:43] LABS: BASOPHILS % (AUTO) 0.4 % (0.0-2.0); HEMATOCRIT 27 % (33-45); HEMOGLOBIN 8.7 g/dL (11.5-14.8); LYMPHOCYTES # (AUTO) 2.9 K/uL (0.8-4.8); LYMPHOCYTES % (AUTO) 52.3 % (20.0-44.0); MEAN CORPUSCULAR HGB CONC 32 g/dl (31.0-36.0); MEAN CORPUSCULAR VOLUME 90 fL (82-100); MONOCYTES # (AUTO) 0.8 K/uL (0.1-1.30); MONOCYTES % (AUTO) 14.5 % (2.0-12.0); NEUTROPHILS # (AUTO) 1.7 K/uL (1.8-8.9); NEUTROPHILS % (AUTO) 30.8 % (43.0-81.0); PLATELET COUNT (AUTO) 129 K/uL (150-450); RED BLOOD CELL COUNT(AUTO) 3.02 MIL/uL (4.0-5.2); WHITE BLOOD COUNT (AUTO) 5.5 K/uL (4.3-11.0)
[2022-11-04 05:54] LABS: CARBON DIOXIDE 26 mmol/L (21-32); CHLORIDE 108 mmol/L (98-107); CREATININE 0.6 mg/dL (0.6-1.3); GLUCOSE 93 mg/dL (74-106); POTASSIUM 3.5 mmol/L (3.5-5.1); SODIUM SERUM 142 mmol/L (136-145); UREA NITROGEN, BLOOD 9 mg/dL (7-18)
[2022-11-04 06:01] LABS: ALBUMIN 2.9 g/dL (3.4-5.0); BILIRUBIN,DIRECT 0.1 mg/dL (0.0-0.2); BILIRUBIN,TOTAL 0.2 mg/dL (0.2-1.0); TOTAL PROTEIN, SERUM 5.7 g/dL (6.4-8.2)
[2022-11-04 06:06] LABS: *SPE A/G RATIO 1.5 (0.7-1.7); *SPE ALPHA-1-GLOBULIN 0.3 g/dL (0.0-0.4); *SPE ALPHA-2-GLOBULIN 0.7 g/dL (0.4-1.0); *SPE BETA GLOBULIN 0.7 g/dL (0.7-1.3); *SPE M-SPIKE Not Observed g/dL (Not Observed)
--- NOTE | 2022-11-04 06:19 | NUR ---
INFORMATION TECHNOLOGY SECURITY MANAGER CLOSING NOTES PATIENT IN BED SLEEPING. PATIENT IS A/O X 4 . ON ROOM AIR SATURATING WELL. BREATHING EVEN AND UNLABORED . NO SOB NOTED. IV ACCESS AT LFA #20G WITH NS AT 75ML/HR INFUSING WELL. NO INFILTRATION NOTED AT THIS TIME. NO PAIN OR DISTRESS NOTED, TELE MONITOR READING SR 75. ALL NEEDS ATTENDED. DUE MEDS GIVEN ORDERED. ALL SAFETY MEASURES IN PLACE. BED ON LOWER LOCKED POSITION, SIDE RAILS UP X 2 ALL THE TIME, CALL LIGHT AND TABLE WITHIN REACH. WILL ENDORSE FOR MAYKEL.
[2022-11-04] MEDS: BUDESONIDE RESPULE INH 0.5 MG/2 ML AMPUL.NEB IH SCH (07:12)
--- NOTE | 2022-11-04 07:32 | NUR ---
LAB MANAGER NOTE PATIENT IN BED , ALERT ORIENTED, ON TELE MONITOR SR HR 78, ON RA ,NO SOB NOTED AT THIS TIME, LT FA HL INTACT ND FLUSHED WELL , RT CHEST KATHLEEN CATH IN PLACE , ON IVF ORDERED,BED IN [id number] AND LOCKED POSITION , SAFETY MEASURE IMPLEMENTED, WILL CONT TO MONITOR
[2022-11-04 08:00] VITALS: BP 125/64
[2022-11-04] MEDS: SERTRALINE HCL 50 MG TABLET PO SCH (08:00)
[2022-11-04] MEDS: LEVOTHYROXINE SODIUM 112 MCG TABLET PO SCH (08:00)
[2022-11-04] MEDS: PANTOPRAZOLE 40 MG TABLET.DR PO SCH (08:00)
[2022-11-04] MEDS: FLUTICASONE PROPIONATE 16 GM BOTTLE NS SCH (08:01)
[2022-11-04] MEDS: VANCOMYCIN 1 GM in IV D5W 250 ML IV SCH (08:01)
[2022-11-04] MEDS ORDERED: AMOX-430 PO (09:22)
--- NOTE | 2022-11-04 11:12 | NUR ---
telephone supervisor notes discharge instructed given, instructet to follow up with family doctor and oncologist also instructed how to take new prescription medication and possible side effects. instructed how to take home meds, hl lfa removed, no bleeding noted, dry dressing applied, belonging checked by public relations specialist , telemeter removed,
[2022-11-04 12:00] VITALS: BP 115/62
--- NOTE | 2022-11-04 13:26 | NUR ---
teleradiologist note friend gibran arrived , taken patient home . placed patient to lobby on w\c , left hospital with stable condition
== END 2022-11-04 13:36 | disposition home or self-care (01) | DRG 872 ==
LOC: ER 18:43 → TELE1 21:47
PROVIDERS: ADMIT Internal Medicine; ATTEND Nurse Practitioner Acute Care
DX: A41.9 Sepsis, unspecified organism (principal); C91.10 Chronic lymphocytic leukemia of B-cell type not having achieved remission; D61.818 Other pancytopenia; D69.6 Thrombocytopenia, unspecified; D64.9 Anemia, unspecified; J32.8 Other chronic sinusitis; J01.90 Acute sinusitis, unspecified; E78.5 Hyperlipidemia, unspecified; E03.9 Hypothyroidism, unspecified; K59.00 Constipation, unspecified; Z88.0 Allergy status to penicillin; Z90.710 Acquired absence of both cervix and uterus; Z79.60 Long term (current) use of unspecified immunomodulators and immunosuppressants; Z20.822 Contact with and (suspected) exposure to COVID-19; K21.9 Gastro-esophageal reflux disease without esophagitis; M19.90 Unspecified osteoarthritis, unspecified site; Z98.890 Other specified postprocedural states
CPT/HCPCS: 36415; 70487-TC; 71045-TC; 76700-TC; 80048-TC; 80053-TC; 80076-TC; 80202-TC; 81001; 82272-TC; 82378; 82607-TC; 82728-TC; 82784; 83010; 83540-TC; 83605-TC; 83615-TC; 83735-TC; 84100-TC; 84155; 84165; 84439-TC; 84443-TC; 84484-TC; 84550-TC; 85025-TC; 85396; 85730-TC; 86140-TC; 86225; 86235; 86301; 86334; 86704; 86705; 86706; 86803; 87040-TC; 87086-TC; 87340; 97110-TC; 97116-TC; A4223; C9803; G0378; J0692; J1650; J2916; J3370; J7030; J7050; J7060; Q9967